=== PATIENT | female | born 1965 | race Caucasian/White ===

== ENCOUNTER 2017-04-14 07:55 | Day surgery (SDC) | payer BC ==
[~2017-04-14 07:55] MED LIST: Lactated Ringers 1,000 ML IV SCH
--- NOTE | 2017-04-14 09:07 | PCM.PREANE ---
Preanesthetic Assessment - Anesthesia/Transfusion/Family Hx Anesthesia History: Prior Anesthesia Without Reaction Family History of Anesthesia Reaction: No Transfusion History: No Prior Transfusion(s) Intubation History: Unknown - Review of Systems General: No Symptoms Pulmonary: No Symptoms Cardiovascular: No Symptoms Gastrointestinal: No Symptoms Neurological: No Symptoms Other: Reports: None - Physical Assessment O2 Sat by Pulse Oximetry: 100 Respiratory Rate: 16 Vital Signs: Last Vital Signs Temp 37.2 C 04/14/17 08:33 Pulse 74 04/14/17 08:33 Resp 16 04/14/17 08:33 BP 158/74 H 04/14/17 08:33 Pulse Ox 100 04/14/17 08:33 Height: 1.57 m Weight: 116.573 kg ASA Class: 2 Mental Status: Alert & Oriented x3 Airway Class: Mallampati = 2 Dentition: Reports: Normal Dentition Thyro-Mental Finger Breadths: 3 Mouth Opening Finger Breadths: 3 ROM/Head Extension: Full Lungs: Clear to Auscultation, Normal Respiratory Effort Cardiovascular: Regular Rate, Regular Rhythm - Lab Values: Laboratory Last Values WBC 8.85 K/uL (4.0-11.0) 04/13/17 13:03 RBC 4.68 M/uL (4.30-5.90) 04/13/17 13:03 Hgb 10.1 g/dL (12.0-16.0) L 04/13/17 13:03 Hct 34.6 % (36.0-46.0) L 04/13/17 13:03 MCV 73.9 fL (80.0-98.0) L 04/13/17 13:03 MCH 21.6 pg (27.0-32.0) L 04/13/17 13:03 MCHC 29.2 g/dL (31.0-37.0) L 04/13/17 13:03 RDW Std Deviation 45.7 fl (28.0-62.0) 04/13/17 13:03 RDW Coeff of [place] 17 % (11.0-15.0) H 04/13/17 13:03 Plt Count 212 K/uL (150-400) 04/13/17 13:03 MPV 10.80 fL (7.40-12.00) 04/13/17 13:03 Nucleated RBC % 0.0 /100WBC 04/13/17 13:03 Nucleated RBCs # 0 K/uL 04/13/17 13:03 Urine HCG, Qual NEGATIVE (NEGATIVE) 04/14/17 08:15 Blood Type A NEGATIVE 04/13/17 13:03 Antibody Screen NEGATIVE 04/13/17 13:03 - Allergies Allergies/Adverse Reactions: Allergies Allergy/AdvReac Type Severity Reaction Status Date / Time No Known Allergies Allergy Verified 04/09/17 13:19 - Blood Blood Available: No - Anesthesia Plan Pre-Op Medication Ordered: None - Acknowledgements Anesthesia Type Planned: General Anesthesia Pt an Appropriate Candidate for the Planned Anesthesia: Yes Alternatives and Risks of Anesthesia Discussed w Pt/Guardian: Yes Pt/Guardian Understands and Agrees with Anesthesia Plan: Yes PreAnesthesia Questionnaire HEENT History: Reports: Other (See Below) Other HEENT History: wears glasses Respiratory History: Reports: Other (See Below) Other Respiratory History: "possible sleep apnea, not diagnosed" Gastrointestinal History: Reports: Other (See Below) Other Gastrointestinal History: occasional heartburn Genitourinary History: Reports: None 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, Musculoskeletal History: Reports: Arthritis, Fracture Psychiatric History: Reports: Anxiety, Depression Endocrine/Metabolic History: Reports: Obesity/BMI 30+ (BMI 47) - Past Surgical History Head Surgeries/Procedures: Reports: None HEENT Surgical History: Reports: Oral Surgery Female Surgical History: Reports: Section (x2), Tubal Ligation - SUBSTANCE USE Smoking Status *Q: Current Every Day Smoker (1 ppd) Tobacco Use Within Last Twelve Months: Cigarettes Recreational Drug Use History: No - HOME MEDS Home Medications: Home Meds Citalopram [Celexa] 40 mg PO DAILY 04/09/17 [History] Zolpidem [Ambien] 10 mg PO BEDTIME PRN 04/09/17 [History] - CURRENT (IN HOUSE) MEDS Current Meds: Current Medications Lactated Ringer's (Ringers, Lactated) 1,000 mls @ 125 mls/hr IV ASDIRECTED [facility] Last Admin: 04/14/17 08:33 Dose: 125 mls/hr
[2017-04-14] MEDS ORDERED: Atropine 0.4 MG/ML SDV ONE ×2 (09:43→09:44)
[2017-04-14] MEDS ORDERED: Ondansetron 4 MG/2 ML SDV ONE ×2 (09:43→09:44)
[2017-04-14] MEDS ORDERED: Lidocaine 2% 5 ML SDV ONE ×2 (09:43→09:44)
[2017-04-14] MEDS ORDERED: Dexamethasone 4 MG/ML 5 ML MDV ONE ×2 (09:43→09:44)
[2017-04-14] MEDS ORDERED: Propofol 200 MG/20 ML SDV ONE (09:43)
[2017-04-14] MEDS ORDERED: fentaNYL 100 MCG/2 ML SDV ONE (09:43)
[2017-04-14] MEDS ORDERED: Midazolam 1 MG/ML 2 ML SDV ONE (09:43)
[2017-04-14] MEDS ORDERED: Ketorolac 30 MG/ML SDV ONE ×2 (09:43→09:44)
[2017-04-14] MEDS: fentaNYL 100 MCG/2 ML SDV IVPUSH PRN ×4 (10:57→11:12)
--- NOTE | 2017-04-14 11:13 | PCM.OPNOTE ---
- General Post-Op/Procedure Note Date of Surgery/Procedure: 04/14/17 Operative Procedure(s): Operative Hysteroscopy with Polypectomy. Endometrial Ablation with Armida Findings: EUA showed normal sized uterus Uterus sounded to 8cm Cervix - 3cm Hysteroscopy showed small polyp around the Right cornua- removed with Myosure Pre Op Diagnosis: Abnormal Uterine bleeding Post-Op Diagnosis: Abnormal Uterine bleeding and Endometrial Polyps Anesthesia Technique: General Mask Primary Surgeon: Rosa Dickey Pathology: Endometrial Polyp Fluid Replacement, Intraop: 1,100 Output, Urine Amount: 20 Condition: Good
[2017-04-14] MEDS ORDERED: Acetaminophen/HYDROcodone 325-5 MG Tab PO PRN (11:16)
--- NOTE | 2017-04-14 11:37 | PCM.POSTAN ---
POST ANESTHESIA ASSESSMENT - MENTAL STATUS Mental Status: Alert, Oriented - RESPIRATORY Respiratory Status: Respiratory Rate WNL, Airway Patent, O2 Saturation Stable - CARDIOVASCULAR CV Status: Pulse Rate WNL, Blood Pressure Stable - GASTROINTESTINAL GI Status: No Symptoms - PAIN Pain Score: 5 - POST OP HYDRATION Hydration Status: Adequate & Stable - OBSERVATIONS Free Text/Narrative:: no anesthesia problems
--- NOTE | 2017-04-16 00:54 | OR ---
SURGEON: MEME OLIVIA DATE OF PROCEDURE:04/14/2017 PREOPERATIVE DIAGNOSIS: Abnormal uterine bleeding. POSTOPERATIVE DIAGNOSIS: Abnormal uterine bleeding. IV FLUID: 1100. EBL: Minimal. FINDINGS: Examination under anesthesia showed a normal-sized anteverted uterus which was mobile and also hysteroscopy showed a normal intrauterine cavity with a very tiny polyp around the right cornua. The ostia was visualized. PROCEDURE: Operative hysteroscopy with endometrial ablation with Armida. BRIEF HISTORY: The patient is a 51-year-old, P2, x2 with regular periods but very heavy menstrual periods. The patient has had heavy menstrual periods for 10 to 15 years. She had an endometrial biopsy done in the past, which was normal and she also had a repeat EMB done which was found to be normal. She had all workup done which was also normal. The patient was very unhappy about the bleeding and it was affecting her quality of life. The patient was given the option of endometrial ablation, hysterectomy, and because she was a smoker, she was not a good candidate for continued oral contraceptive pill. The patient wanted an endometrial ablation. Signed the consent. PROCEDURE IN DETAIL: The patient was taken to the operating room where general anesthesia was performed without difficulty. The patient was prepared and draped in the normal sterile fashion in the dorsal lithotomy position. The patient had the cervix exposed with the bivalve speculum. The hysteroscopy revealed a small polyp around the right cornua which was removed with the MyoSure device. After that, uterus was sounded to 8 cm. The cervix was about 3 mm. The uterine depth was 5 mm. The Armida was set as above and the Armida was then advanced into the endometrium and gradually withdrawn back. The cervical balloon was inflated. Uterine integrity test was performed after which the Armida device was activated for 120 seconds. The Armida device was then removed after the deflation of the cervical saline balloon. The patient tolerated the procedure well. All instrument and pad counts were correct x2. The patient was taken to the recovery room in stable condition. CHING DEVRIES /[id number]
== END 2017-04-14 12:33 | disposition home or self-care (01) ==
LOC: MW.SDS 07:55
PROVIDERS: ATTEND Obstetrics & Gynecology
DX: N93.9 Abnormal uterine and vaginal bleeding, unspecified (principal); F41.9 Anxiety disorder, unspecified; F32.9 Major depressive disorder, single episode, unspecified; F17.210 Nicotine dependence, cigarettes, uncomplicated; E66.9 Obesity, unspecified; Z68.42 Body mass index [BMI] 45.0-49.9, adult; Z79.899 Other long term (current) drug therapy; Z98.51 Tubal ligation status; Z80.3 Family history of malignant neoplasm of breast; Z83.3 Family history of diabetes mellitus
CPT/HCPCS: 36415; 58563; 81025; 85027; 86850; 86900; 86901; A9270; J0461; J1100; J1885; J2250; J2405; J3010; J7120; 00940; 88305; J2704

== ENCOUNTER 2018-05-19 09:00 | Day surgery (SDC) | payer BC ==
[~2018-05-19 09:00] MED LIST changes: +Acetaminophen/HYDROcodone 325-5 MG Tab PO PRN; +Lidocaine 1% 0 ML ONE; +Lidocaine 1% 20 ML MDV ONE; +ceFAZolin 2 GM in Premix Bag 1 BAG IV SCH
--- NOTE | 2018-05-19 10:33 | PCM.PREANE ---
Preanesthetic Assessment - Anesthesia/Transfusion/Family Hx Anesthesia History: Prior Anesthesia Without Reaction Family History of Anesthesia Reaction: No Transfusion History: No Prior Transfusion(s) Intubation History: Unknown - Review of Systems General: No Symptoms Pulmonary: Other (snores, no formal dx of JOSE, sleeps with hob up) Cardiovascular: No Symptoms Gastrointestinal: No Symptoms Neurological: No Symptoms Other: Reports: None - Physical Assessment NPO Status Date: 05/18/18 O2 Sat by Pulse Oximetry: 95 Respiratory Rate: 18 Vital Signs: Last Vital Signs Temp 97.3 F 05/19/18 09:50 Pulse 81 05/19/18 09:50 Resp 18 05/19/18 09:50 BP 119/81 05/19/18 09:50 Pulse Ox 95 05/19/18 09:50 Height: 5 ft 2 in Weight: 123.831 kg ASA Class: 2 Mental Status: Alert & Oriented x3 Airway Class: Mallampati = 2 Dentition: Reports: Normal Dentition ROM/Head Extension: Full Lungs: Clear to Auscultation, Normal Respiratory Effort Cardiovascular: Regular Rate, Regular Rhythm - Lab Values: Laboratory Last Values Urine HCG, Qual NEGATIVE (NEGATIVE) 05/19/18 09:40 - Allergies Allergies/Adverse Reactions: Allergies Allergy/AdvReac Type Severity Reaction Status Date / Time No Known Allergies Allergy Verified 05/14/18 11:00 - Blood Blood Available: No - Anesthesia Plan Pre-Op Medication Ordered: None - Acknowledgements Anesthesia Type Planned: General Anesthesia Pt an Appropriate Candidate for the Planned Anesthesia: Yes Alternatives and Risks of Anesthesia Discussed w Pt/Guardian: Yes Pt/Guardian Understands and Agrees with Anesthesia Plan: Yes Additional Comments: PMH: morbid obesity with bmi=48, smoker PLAN: ga- lma or ett PreAnesthesia Questionnaire HEENT History: Reports: Other (See Below) Other HEENT History: wears glasses Cardiovascular History: Reports: Hypertension Respiratory History: Reports: Other (See Below) Other Respiratory History: "possible sleep apnea, not diagnosed" Gastrointestinal History: Reports: Other (See Below) Other Gastrointestinal History: occasional heartburn Genitourinary History: Reports: None 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: Musculoskeletal History: Reports: Arthritis, Fracture Other Musculoskeletal History: hx fx left femur Psychiatric History: Reports: Anxiety, Depression Endocrine/Metabolic History: Reports: Obesity/BMI 30+ - Past Surgical History Head Surgeries/Procedures: Reports: None HEENT Surgical History: Reports: Oral Surgery Female Surgical History: Reports: Section, Endometrial Ablation, Tubal Ligation - SUBSTANCE USE Smoking Status *Q: Current Every Day Smoker Tobacco Use Within Last Twelve Months: Cigarettes Recreational Drug Use History: No - HOME MEDS Home Medications: Home Meds Citalopram [Celexa] 40 mg PO DAILY 04/09/17 [History] Lisinopril/Hydrochlorothiazide [Lisinopril-Hctz 10-12.5 mg Tab] 1 tab PO DAILY 04/01/18 [History] Meloxicam 15 mg PO DAILY 04/01/18 [History] Ibuprofen 3 tab PO ASDIRECTED PRN 05/14/18 [History] - CURRENT (IN HOUSE) MEDS Current Meds: Current Medications Hydrocodone Bitart/Acetaminophen ([place] 325-5 Mg) 1 - 2 tab PO Q4H PRN PRN Reason: Pain Cefazolin Sodium/Dextrose 2 gm (/ Premix) 50 mls @ 100 mls/hr IV ONCALL [facility] Lactated Ringer's (Ringers, Lactated) 1,000 mls @ 100 mls/hr IV ASDIRECTED [facility] Last Admin: 05/19/18 10:08 Dose: 100 mls/hr Discontinued Medications Lidocaine HCl (Xylocaine-Mpf 1%) Confirm Administered Dose 10 mls @ as directed .ROUTE .STK-MED ONE Stop: 05/19/18 07:36 Lidocaine HCl (Xylocaine 1%) Confirm Administered Dose 20 ml .ROUTE .STK-MED ONE Stop: 05/19/18 07:36
[2018-05-19] MEDS ORDERED: Midazolam 1 MG/ML 2 ML SDV ONE (11:44)
[2018-05-19] MEDS ORDERED: Propofol 200 MG/20 ML SDV ONE (11:45)
[2018-05-19] MEDS ORDERED: fentaNYL 250 MCG/5 ML SDV ONE (11:45)
[2018-05-19] MEDS ORDERED: ceFAZolin 1 GM Vial ONE (12:23)
[2018-05-19] MEDS ORDERED: diphenhydrAMINE 50 MG/ML SDV ONE (12:35)
[2018-05-19] MEDS ORDERED: Ondansetron 4 MG/2 ML SDV ONE (12:35)
[2018-05-19] MEDS ORDERED: Ketorolac 30 MG/ML SDV ONE (12:35)
[2018-05-19] MEDS ORDERED: Dexamethasone 4 MG/ML 5 ML MDV ONE (12:35)
[2018-05-19] MEDS ORDERED: Metoclopramide 10 MG/2 ML SDV ONE (12:35)
[2018-05-19] MEDS ORDERED: Sugammadex Sodium 200 MG/2 ML VIAL ONE (12:46)
[2018-05-19] MEDS ORDERED: HYDROmorphone 2 MG/ML SDV IVPUSH ONE (13:00)
[2018-05-19] MEDS: HYDROmorphone 2 MG/ML Syringe ONE ×2 (13:09→13:24)
--- NOTE | 2018-05-19 13:29 | PCM.OPNOTE ---
- General Post-Op/Procedure Note Date of Surgery/Procedure: 05/19/18 Operative Procedure(s): R knee arthroscopy with partial medial menisectomy Post-Op Diagnosis: DJD R knee, R knee medial meniscus tear Anesthesia Technique: General ET Tube Primary Surgeon: Rohini Alvares Hydraulic Barker Operator: Shanika Banks in mLs: 5 Condition: Good Free Text/Narrative:: tt= see nursing record #[id number]
--- NOTE | 2018-05-19 13:33 | PCM.POSTAN ---
POST ANESTHESIA ASSESSMENT - MENTAL STATUS Mental Status: Alert, Oriented - RESPIRATORY Respiratory Status: Respiratory Rate WNL, Airway Patent, O2 Saturation Stable - CARDIOVASCULAR CV Status: Pulse Rate WNL, Blood Pressure Stable - GASTROINTESTINAL GI Status: No Symptoms - POST OP HYDRATION Hydration Status: Adequate & Stable
--- NOTE | 2018-05-19 14:37 | PCM48HPAN ---
Post Anesthesia Note - EVALUATION WITHIN 48HRS OF ANESTHETIC Vital Signs in Normal Range: Yes Patient Participated in Evaluation: Yes Respiratory Function Stable: Yes Airway Patent: Yes Cardiovascular Function Stable: Yes Hydration Status Stable: Yes Pain Control Satisfactory: Yes Nausea and Vomiting Control Satisfactory: Yes Mental Status Recovered: Yes Resp Rate: 12
--- NOTE | 2018-05-19 15:43 | OR ---
SURGEON: Rohini Alvares MD DATE OF PROCEDURE: 05/19/2018 PREOPERATIVE DIAGNOSIS: Right knee medial meniscus tear. POSTOPERATIVE DIAGNOSES: 1. Right knee medial meniscus tear. 2. Degenerative joint disease, right knee. PROCEDURES: Right knee arthroscopy with partial medial meniscectomy and chondroplasty of medial femoral condyle. ASSOCIATE MERCHANT: Shanika Banks PA-C. ANESTHESIA: General. ESTIMATED BLOOD LOSS: 5 mL. TOURNIQUET TIME: See nursing record. COMPLICATIONS: None. DVT PROPHYLAXIS: Not indicated. IMPLANTS USED: None. BRIEF HISTORY: Dorota is a 53-year-old female who had complaints of progressive right knee pain. She had failed conservative treatment. Due to her lack of response to conservative treatment, I did recommend surgical intervention. The risks and goals of the procedure were discussed with the patient and were documented preoperatively. She agreed to proceed. DESCRIPTION OF PROCEDURE: The patient was properly identified and brought to the operating room. She was transferred from the OR cart and placed on the operating table in supine position. General anesthesia was administered. After adequate anesthesia was obtained, a well-padded tourniquet was applied to the right lower extremity. The right lower extremity was then prepped in standard fashion using ChloraPrep solution. It was then sterilely draped. A time-out was performed to ensure correct site and procedure. Preoperative antibiotics were given. The surgical site had been marked preoperatively. An Esmarch was used to exsanguinate the right lower extremity and the tourniquet was inflated to 250 mmHg. A lateral portal arthrotomy was established. Blunt trocar and cannula were introduced into the suprapatellar pouch. Camera, inflow, and outflow were assembled. No significant synovitis was noted. The patellofemoral joint was visualized. 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 The trochlear groove showed minor degenerative changes. The patella appeared to track centrally. I then extended down the lateral and medial gutter. No loose bodies were identified. There was a small plical remnant along the medial aspect, which was causing some wear on the medial femoral condyle; however, this did not appear to involve either a patellofemoral joint or the weightbearing surface. I elected to keep this intact as it did not appear to be causing any impingement. I then extended into the medial compartment. A medial portal arthrotomy was established. A blunt probe was inserted. The meniscus was probed. She was found to have a small radial tear along the posterior horn of the medial meniscus. This was resected with combination of biters and shaver. This was again probed and the remainder of the meniscus was found to be stable. The joint surfaces were then inspected. She had diffuse grade 3 chondromalacia along the medial femoral condyle and medial tibial plateau. A chondroplasty of the medial femoral condyle was performed, which removed a few loose cartilaginous fragments. I then entered the notch. Both the ACL and PCL were visualized and probed and found to be intact. I then entered the lateral compartment. The lateral compartment showed grade 2 degenerative changes along the lateral tibial plateau as well as the lateral femoral condyle. The meniscus was extensively probed and no tearing was noted. I then re-entered the patellofemoral joint. The shaver was used to perform a chondroplasty of the patella. Instruments were then removed from the knee. The portal sites were closed with 3-0 nylon. 1% Lidocaine was injected along the portal tracts. Xeroform gauze was placed over the wound and a bulky dressing was applied. The tourniquet was then deflated. She was awakened from her anesthetic and transferred back to the operating room cart. She was brought to recovery room in stable condition. All needle and sponge counts were correct. MARCI / JAYCOB /[id number]
== END 2018-05-19 15:00 | disposition home or self-care (01) ==
LOC: MW.SDS 09:00
PROVIDERS: ATTEND Orthopaedic Surgery
DX: S83.241A Other tear of medial meniscus, current injury, right knee, initial encounter (principal); M17.11 Unilateral primary osteoarthritis, right knee; M94.261 Chondromalacia, right knee; I10 Essential (primary) hypertension; F17.210 Nicotine dependence, cigarettes, uncomplicated; F41.9 Anxiety disorder, unspecified; F32.9 Major depressive disorder, single episode, unspecified; E66.01 Morbid (severe) obesity due to excess calories; Z68.42 Body mass index [BMI] 45.0-49.9, adult; Z79.899 Other long term (current) drug therapy; W01.0XXA Fall on same level from slipping, tripping and stumbling without subsequent striking against object, initial encounter
CPT/HCPCS: 29881; 81025; A9270; J0690; J1100; J1170; J1200; J1885; J2250; J2405; J2704; J2765; J3010; J3490; J7120